=== PATIENT | male | born 1925 | race Caucasian/White ===

== ENCOUNTER 2016-12-03 19:13 | Inpatient (IN) ==
[2016-12-03] MEDS ORDERED: LEVOFLOXACIN INJ 750 MG in PREMIX 1 EACH IV STA (19:38)
[2016-12-03] MEDS ORDERED: ALBUTEROL/IPRATROPIUM 3 ML NEB RESP TX STA (19:38)
[2016-12-03] MEDS ORDERED: methylPREDNISolone SOD SUC 40 MG/1 ML VIAL IM STA (19:38)
[2016-12-03] MEDS ORDERED: LEVOFLOXACIN INJ 150 ML IV ONE (19:44)
[2016-12-03] MEDS ORDERED: TERBUTALINE 1 MG/1 ML VIAL SUBCUT ONE ×2 (19:45→20:10)
--- NOTE | 2016-12-03 19:45 | Emergency Department Note ---
Arrival - Arrival Chief Complaint: Upper Respiratory ED Nursing Triage Note: C/O Fever/nonproductive cough. Onset a couple of days ago. Daughter reported to EMS that pt was seen [facility] and was told that he had an elevated WBC count, but no further investigation was done for this. Pt developed fever and has been confused per family today. Pt is awake, alert and oriented at time of triage, pt does say things in conversation that doesn't make sense. Mode of Arrival: Stretcher Limitations: No Limitations Source: Patient Time Seen by Provider: 12/03/16 19:38 - History of Present Illness HPI Narrative: This 89-year-old white male presents 3 days after onset of cough and intermittent fever, and intermittent wheeze. The patient was seen at the [facility] at that time was told he had an elevated white blood cell count but no further investigation or treatment was done. Since that time he has continued to spike temperatures and have cough with periods of confusion and nausea but no pacheco vomiting. He denies chest pain or purulence. The patient is hard of hearing but beyond this does not seem to have the ability give a full cognizant history. He is oriented to person place and loosely to time at the moment. He does not appear in acute medical distress currently. Onset (ago): day(s) (Patient presents 3 days post onset of symptoms) Allergies/Adverse Reactions: Allergies Allergy/AdvReac Type Severity Reaction Status Date / Time Sulfa (Sulfonamide Allergy Anxiety Verified 11/14/16 14:47 Antibiotics) Home Medications: Home Medications Medication Instructions Recorded Confirmed Type Aspirin [Ecotrin] 81 mg PO BEDTIME 02/12/16 11/17/16 History Lansoprazole [Prevacid] 30 mg PO DAILY 02/12/16 11/17/16 History Review of System - Review of System 12 point system: reviewed and no additional remarkable complaints except as stated - Review of System Constitutional: Present: as per HPI Respiratory: Present: as per HPI Cardiovascular: Present: as per HPI Gastrointestinal: Present: as per HPI Medical,Surgical,& Family Hx - Medical History Cardio: History of: Pacemaker (this admit) Psychological: History of: Depression Neurology: History of: TIA (possible) No history of: Seizures HEENT: History of: Ear Problem (hearing aides), Dental Problems (Dentures) Gastrointestinal: History of: GERD, Gastrointestinal Cancer (ulcers) Other: History of: Skin Problems (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 HEENT: Normocephalic. No trauma. Moist mucous membranes. EOMI. PERRLA. ENT NML NECK: Supple. No adenopathy. CARDIAC: Regular. No murmurs. Heart rate 86 CHEST: Scattered expiratory wheeze. No respiratory distress. O2 sat 94% ABDOMEN: Soft. Nontender. Active bowel sounds. EXTREMITIES: No trauma. Normal ROM. No pedal edema. SKIN: No diaphoresis. No rash. Scattered patches of eczema on the face. NEURO: Alert. Oriented to person and place loosely to time.. Motor, sensory, vibratory intact. No focal deficits. Vital Signs: Vital Signs Temperature 100.5 F H 12/03/16 19:13 Pulse Rate 119 H 12/03/16 20:21 Respiratory Rate 18 12/03/16 20:21 Blood Pressure 141/67 12/03/16 19:13 O2 Sat by Pulse Oximetry 99 12/03/16 20:21 Course Course Narrative: During the course of evaluation the patient demonstrated new onset atrial fibrillation with rapid ventricular response up to 150. He was treated with 25 a Cardizem bring the rate down to 110 but because of borderline hypertension a Cardizem drip was not initiated. Also notable was evidence of early left lower lobe infiltrate. - Reevaluation(s) Reevaluation #1: Discussed with family the need for hospitalization given his 2 major medical problems of pneumonia and new onset atrial fibrillation. - Consultations Consultation #1: Discussed with the hospitalist service who will admit for further evaluation treatment. A Results - Labs CBC & BMP: 12/03/16 19:59 12/03/16 19:59 Labs: I have reviewed the laboratory noted the borderline abnormal white blood cell count. Likewise noted was a normal urines. - Impressions EKG: Atrial fibrillation with rapid ventricular response at 130. Right bundle branch block with evidence of left ventricular hypertrophy. Evidence of bowel anterior WI noted. - Diagnostic Findings Procedure: Chest x-ray: image reviewed by me, report reviewed by me (COPD with evidence of bibasilar atelectasis versus infiltrates), CT: image reviewed by me , report reviewed by me, pending (Head) Disposition Clinical Impression: Left lower lobe pneumonia, New-onset atrial fibrillation Case discussed with: patient's family Disposition: Still a Patient Condition: Guarded Time of Disposition: 21:45
--- NOTE | 2016-12-03 20:12 | CT Report ---
CT head/brain wo con INDICATION: Altered mental status/confusion The total DLP is 970 mGy*cm. COMPARISON: Noncontrast CT head dated May 12, 2016 Technique: Serial axial tomographic images of the brain were obtained without the use of intravenous contrast. Dose reduction: This CT exam was performed using one or more of the following dose reduction techniques: Automated exposure control, automated adjustment of the mA and/or KV according to patient size, or use of iterative reconstruction technique. Findings: Advanced generalized atrophy is noted with mild prominence of the sulci and cortical volume loss, which appears similar to prior. Prominent periventricular white matter hypodensity changes are noted bilaterally which do not demonstrate mass effect and are nonspecific but favored to represent sequela of chronic microvascular ischemia. Chronic punctate lacunar infarct is noted within the left anterior basal ganglia/anterior internal capsule. There is no evidence of vascular territory infarct or acute intracranial hemorrhage. The cage-white matter differentiation is generally maintained. There is no hydrocephalus. The basilar cisterns are patent. The visualized paranasal sinuses, mastoid air cells and middle ear cavities are predominantly clear. The included orbits and their contents appear within normal limits. The visualized osseous structures and overlying soft tissues of the skull and face demonstrate no acute abnormality. IMPRESSION: No acute intracranial hemorrhage or infarction. Similar advanced atrophy and sequela of chronic microvascular ischemia. PROCEDURE INTERPRETED AT [facility] DEPARTMENT OF RADIOLOGY Final Report Signed by: Channing Thacker
[2016-12-03] MEDS ORDERED: methylPREDNISolone SOD SUC 125 MG/2 ML VIAL ONE (20:13)
[2016-12-03] MEDS: TERBUTALINE 1 MG/1 ML VIAL SUBCUT SCH (20:18)
[2016-12-03 20:19] LABS: Basophils # 0.1 10*3/uL (0.0-0.2); Basophils % 0.7 % (0.0-0.8); Eosinophils # 0.3 10*3/uL (0.0-0.87); Eosinophils % 2.6 % (0.00-10.9); Hematocrit 39.9 VOL% (42.0-52.0); Hemoglobin 13.6 GM/DL (14.0-18.0); Immature Granulocytes % 0.5 %; Immature Granulocytes Absolute 0.06 #; Lymphocytes # 3.1 10*3/uL (1.4-4.0); Lymphocytes % 27.7 % (21.2-54.2); Mean Corpuscular HGB Conc 34.1 GM/DL (32-36); Mean Corpuscular Hemoglobin 32 PG (27-34); Mean Corpuscular Volume 93.4 FL (87-102); Mean Platelet Volume 10.1 FL (9.6-12.0); Monocytes # 1.2 10*3/uL (0.11-0.8); Monocytes % 10.6 % (1.7-12.7); Neutrophils # 6.5 10*3/uL (1.4-7.4); Neutrophils % 57.9 % (38.7-73.9); Platelet Count 200 T/CUMM (130-400); Red Blood Count 4.27 MC/CUMM (3.8-5.5); Red Cell Distribution Width 12.9 % (9.3-17.3); White Blood Count 11.2 T/CUMM (4-12)
--- NOTE | 2016-12-03 20:20 | XRay Report ---
Exam: XR chest 1V portable Indication: Shortness of breath Comparison study: 11/17/2016 Findings: Cardiac silhouette is enlarged, similar to prior. Diffuse interstitial opacities suggestive of underlying chronic scarring appears similar prior. Low lung volumes are noted with basilar atelectasis. There is also minimal patchy left more so than right lung basilar airspace opacities which may represent a degree of atelectasis or developing infiltrates. There is no pneumothorax. Left chest pacemaker device and wire leads appear in similar position. There is no acute osseous abnormality. Impression: Low lung volumes and chronic interstitial changes and patchy basilar opacities may represent atelectasis although developing infiltrate cannot be entirely excluded. PROCEDURE INTERPRETED AT [facility] DEPARTMENT OF RADIOLOGY Final Report Signed by: Channing Thacker
[2016-12-03 20:23] LABS: Apearance,Urine CLEAR (Clear); Bilirubin,Urine Negative (Negative); Blood, Urine Negative (Negative); Glucose,Urine (UA) Negative (Negative); Ketones,Urine Negative (Negative); Mucus,Urine Occasional /LPF (Occasional); Nitrite,Urine Negative (Negative); Protein,Urine Negative; RBC,Urine <1 /HPF (0-4); Urine Color Yellow (Yellow); Urine Specific Gravity 1.012 (1.001-1.035); Urine Urobilinogen < 2.0 EU/DL (0.2-1.0); WBC,Urine <1 /HPF (0-6)
[2016-12-03 20:32] LABS: Barbiturates Screen,Urine Negative (Negative); Benzodiazepines Screen,Urine Negative (Negative); Cannabinoid Screen,Urine Negative (Negative); Opiate Screen,Urine Negative (Negative); Phencyclidine Screen,Urine Negative (Negative)
[2016-12-03 20:42] LABS: Alanine Aminotransferase 20 U/L (16-61); Alkaline Phosphatase 122 U/L (45-117); Aspartate Amino Transferase 21 U/L (0-37); Blood Urea Nitrogen 17 MG/DL (7-18); Calcium 8.4 MG/DL (8.5-10.1); Glucose 106 MG/DL (74-106); Osmolality,Calculated 271.1 MOS/KG (273-304); Potassium 4.4 MMOL/L (3.5-5.1); Sodium 135 MMOL/L (136-145); Troponin I Only < 0.015 NG/ML (0.00-0.045)
[2016-12-03] MEDS ORDERED: DILTIAZEM 50 MG/10 ML VIAL IV STA (20:44)
[2016-12-03] MEDS ORDERED: DILTIAZEM 50 MG/10 ML VIAL IV ONE (20:48)
--- NOTE | 2016-12-03 22:25 | Hospitalist History & Physical ---
Assessment and Plan (1) Atrial fibrillation with RVR Status: Acute Assessment and plan: This is reported by the emergency room physician. The patient reportedly was given 25 mg of Cardizem IV with return of rate to below 120. Blood pressure is normal. I am concerned that there may be some pacemaker failure here if you do not capture to control the rate. Therefore need to get a hydrology technician involved and may be quite in the past pacemaker. Cannot tell me who his cardiology disease there is no family member at the bedside. Patient being admitted to the hospital to the service of Dr. Gavin Current Visit: Yes (2) Pacemaker failure Status: Acute Assessment and plan: See above. I do not see disruption in the wiring on the chest x-ray Current Visit: Yes (3) Left lower lobe pneumonia Status: Acute Assessment and plan: Patient reportedly did receive levofloxacin and ceftriaxone in the emergency room. We will continue with the same on a daily basis starting tomorrow. I will obtain a urine for strep pneumonia antigen. Check for mycoplasma IgM and IgG this is at worst community-acquired pneumonia. As regard to altered mental status this does not seem to be the case at this point. Patient seems to be with baseline dementia. He does not look toxic and none the less he needs 2 sets of blood culture to evaluate for invasive infection. Repeat a chest x-ray in 5 days for continues to be of normal at 6 weeks. Current Visit: Yes History of Present Illness Chief complaint: Altered mental status preceded by a cough and reported fever History of present illness: Mr. Kemp is a 89 year old male (a very poor historian) presented to the emergency room with a history of "fevers cough nonproductive and a history of having been [facility]; and having been told to have a leukocytosis. Patient reportedly had been having problems breathing at home. When I asked him to question as to whether he had fever as he cannot recall but he states that he is "cold natured." All the time I was with him he never coughed once. He did have a chest x-ray in the emergency room that shows opacity in the left lower lobe possibly also involving the lingula because alludes to the cardiac silhouette. He has a history of this medical placement noted on an EKG on previous visits to this hospital. States that his heart was fast this with a put the pacemaker in. While in the emergency room, according to the emergency room physician, he developed atrial fibrillation with rapid ventricular responses. He was given 25 mg IV Cardizem IV push and that was able to bring the heart rate in the 1 teens. Some reason an EKG was not done and there is none on the chart. I plan to run an EKG now. If this patient developed RVR atrial fibrillation then they must have been pacemaker failure. I do not this presence of a dual-chamber pacemaker by chest x-ray. Home Medications Medication Instructions Recorded Confirmed Type Aspirin [Ecotrin] 81 mg PO BEDTIME 02/12/16 11/17/16 History Lansoprazole [Prevacid] 30 mg PO DAILY 02/12/16 11/17/16 History Allergies Allergy/AdvReac Type Severity Reaction Status Date / Time Sulfa (Sulfonamide Allergy Anxiety Verified 11/14/16 14:47 Antibiotics) Medical,Surgical,& Family Hx - Medical History Cardio: History of: Pacemaker (this admit) Psychological: History of: Depression Neurology: History of: TIA (possible) No history of: Seizures HEENT: History of: Ear Problem (hearing aides), Dental Problems (Dentures) Gastrointestinal: History of: GERD, Gastrointestinal Cancer (ulcers) Other: History of: Skin Problems (Status post radiation to right nasal lesion) - Surgical History HEENT Surgeries: Surgical HX of: Eye Surgery (bilateral cataract) Abdominal Surgeries: Surgical HX of: Abdominal Surgery, Cholecystectomy Orthopedic Surgeries: Surgical HX of;: Orthopedic Surgery - Family History Family History: Reports;: Family Stroke - Social History Smoking Status: Never smoker Frequency of Alcohol Use: None Type of Drug Use: None - Constitutional Constitutional: Present: other (Denies fevers but acknowledges been cold) - EENT Eyes: Present: other (No symptoms and signs) Nose, mouth and throat: Present: other (No symptoms and signs) - Cardiovascular Cardiovascular: Present: other (Irregular heartbeat) - Respiratory Respiratory: Present: other (Symptoms and signs) - Neurological Neurological: Present: other (Generalized weakness) - Psychiatric Psychiatric: Present: other (Possible dementia) Exam - Constitutional Vitals: Period Temp Pulse Resp BP Sys/Wray Pulse Ox Last 24 Hr 100.5 F-100.5 F 79-119 15-19 141-141/67-67 94-99 General appearance: normal weight - Head Head exam: Present: normocephalic, atraumatic - Eye Eye exam: Present: EOMI Pupils: Present: GHANSHYAM - ENT ENT exam: Present: normal oropharynx - Cardiovascular Cardiovascular exam: Present: irregular rhythm, other (Rate below 120 presence of a pacemaker very infrequent pacemaker spikes) - GI/Abdominal GI/Abdominal exam: Present: normal bowel sounds, soft - Extremities Exam Extremities exam: Present: full ROM, other (Generalized weakness) - Neurological Exam Neurological exam: Present: alert, CN II-XII intact, other (Very hard of hearing marginal cognitive output) - Psychiatric Psychiatric exam: Present: other (Possible dementia) - Skin Skin exam: Present: normal color, warm, dry Results - Labs CBC & BMP: 12/03/16 19:59 12/03/16 19:59 Lab Results: I have reviewed the past 24 hour labs (I noticed a modest leukocytosis modest anemia) - Diagnostic Findings Procedure: Chest x-ray: image reviewed by me (Left basilar and possible lingular opacity)
[2016-12-03] MEDS ORDERED: cefTRIAXone 1,000 MG VIAL IM STA (22:52)
[2016-12-03] MEDS ORDERED: cefTRIAXone 1,000 MG VIAL ONE (23:33)
[2016-12-04] MEDS: TERBUTALINE 1 MG/1 ML VIAL SUBCUT SCH ×2 (00:21→01:37)
[2016-12-04] MEDS: PANTOPRAZOLE 40 MG TABLET PO SCH (09:05)
--- NOTE | 2016-12-04 09:49 | EKG Report ---
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
--- NOTE | 2016-12-04 14:46 | Hospitalist Progress Note ---
Assessment and Plan (1) Atrial fibrillation with RVR Status: Acute Assessment and plan: Patient has regular rhythm now and heart rate is controlled history of pacemaker placement will ask cardiology to see him tomorrow Current Visit: Yes (2) Leukocytosis Status: Acute Assessment and plan: Patient has mild leukocytosis he has been started on antibiotics for suspected pneumonia but there is no symptoms otherwise. Will follow her white count tomorrow Current Visit: No Hospitalist: Subjective Interval history: Mr. Kemp is a 89 year old male who was brought for the history of cough and fever was nonproductive. Recently was admitted to the hospital for altered mental status which family was concerned about. He was seen by the geriatric there and advised to follow-up with the local escort blind. He was found to have a leukocytosis there with no obvious source except some respiratory symptom and discharged on doxycycline. Patient family is not here so I am not sure he was able to take those medication. He was brought here last night with the cough fever and dyspnea. There is no objective fever here and patient not coughing. He has history of pacemaker placement for bradycardia last year. He was reported to have atrial fib with rapid ventricular rate in the ER and required Cardizem. X-ray reported to have bilateral interstitial changes and bibasilar opacities/atelectasis. Patient was noted to have mild leukocytosis started on IV antibiotics. Patient is alone in room and unable to verbalize any symptoms looked very comfortable without any distress Exam - Constitutional Vitals: Period Temp Pulse Resp BP Sys/Wray Pulse Ox Last 24 Hr 98.0 F-98.6 F 71-90 18-20 107-118/55-58 97-97 General appearance: no acute distress - Respiratory Respiratory exam: Present: clear to auscultation bilaterally. Absent: rales, rhonchi - Cardiovascular Cardiovascular exam: Present: regular rate and rhythm. Absent: tachycardia - GI/Abdominal GI/Abdominal exam: Present: normal bowel sounds, soft. Absent: tenderness - Extremities Exam Extremities exam: Present: edema - Neurological Exam Neurological exam: Present: alert Results - Labs CBC & BMP: 12/03/16 19:59 12/03/16 19:59 Lab Results: I have reviewed the past 24 hour labs
--- NOTE | 2016-12-04 15:17 | Case Mgmt Physician Query Form ---
TB Signs and Symptoms Screening ([place]) INSTRUCTIONS: To be completed annually on residents/staff with a significant Tuberculin Skin Test (TST) upon admission/hire or a prior significant TST. To be completed on all staff at hire. Please respond to each listed symptom with an (X) in either the "YES" or "NO" box. Do you currently have any of the following symptoms: YES NO (x ) ( ) A cough If yes, is it: (x ) Productive ( ) Non- productive ( ) ( x) Hemoptysis (spitting up blood) ( ) ( x) Chest pains ( ) ( x) Weight Loss ( ) ( x) Fever ( ) (x ) Night Sweats ( ) (x ) Weakness ( ) (x ) Loss of Appetite ( ) (x ) Difficulty Breathing If you answered YES" to any of the above questions, how long have symptoms been present? Comments: if you have any questions,please contact me. Thank you , Concepcion GLASGOW P:[phone] F: [phone] E: [email or web address]
[2016-12-04] MEDS ORDERED: TUBERCULIN SKIN TEST 0.1 ML SYRINGE INTRADERM ONE (16:00)
[2016-12-04] MEDS: TEMAZEPAM 15 MG CAPSULE PO PRN (20:15)
[2016-12-04] MEDS: ASPIRIN EC 81 MG TABLET PO SCH (20:15)
[2016-12-04] MEDS: LEVOFLOXACIN INJ 750 MG in PREMIX 1 EACH IV SCH (20:17)
--- NOTE | 2016-12-04 21:47 | Cardiology Consult Note ---
Assessment and Plan - Time spent with patient Time spent with patient: Greater than 30 minutes (1) Atrial fibrillation with RVR Status: Acute Assessment and plan: This is most likely due to his age and structural heart disease and sick sinus syndrome, more so than pacemaker malfunction. He probably did not get antitachycardia pacemaking ability with his pacemaker because of the time he had not had atrial fib. Plan/recommendation: rate control medicine-Toprol 12.5 mg p.o. twice daily Will not add an antiarrhythmic drug unless she fails the rate control medicine Check magnesium and replete per guidelines Check TSH The question comes up regarding anticoagulation. At this point, I would not do it unless he has another episode or TIA. I am just considering risk and benefits based on his being [address] Gustafson may have better insight as to whether to treat or not. Agree with your antibiotics to treat his pneumonia I will follow along with. Thank you for allowing me to participate in this patient's care Current Visit: Yes (2) Decreased hearing of both ears Status: Acute Current Visit: Yes (3) Skin cancer Status: Acute Current Visit: Yes (4) Left lower lobe pneumonia Status: Acute Current Visit: Yes (5) S/P cardiac pacemaker procedure Status: Acute Current Visit: No (6) Sick sinus syndrome Status: Acute Current Visit: No History of Present Illness - Data of Consult Patient: known to practice within the last 3 years Consult date: 12/04/16 Requesting Physician: David Mathew - Consult Narrative Reason for consult: Evaluate A. fib RVR,? Pacemaker malfunction History of present illness: Mr. 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 Ulises Gustafson 89-year-old man. Has known sick sinus syndrome. And about 6 had a pacemaker placed. The lead had to be repositioning. Later follow-up presumably showed normally functioning pacemaker. He came to the emergency room. He was noted to be in A. fib RVR. He is begun on some Cardizem. He converted to sinus rhythm. He was admitted. I was asked see him. No chest pain. No orthopnea, PND, edema, aphthous, syncope, cough wheezing or phlegm. Has had skin cancers LVEF is around 45% at the last time is checked within the last 8 months Decreased hearing CC: Darwin Gavin MD - Home Medications and Allergies Home Medications: Home Medications Medication Instructions Recorded Confirmed Type Aspirin [Ecotrin] 81 mg PO BEDTIME 02/12/16 12/04/16 History Lansoprazole [Prevacid] 30 mg PO DAILY 02/12/16 12/04/16 History Temazepam [Restoril] 1 tablet PO BEDTIME PRN 12/04/16 12/04/16 History Allergies/Adverse Reactions: Allergies Allergy/AdvReac Type Severity Reaction Status Date / Time Sulfa (Sulfonamide Allergy Anxiety Verified 11/14/16 14:47 Antibiotics) 12 point system: reviewed and no additional remarkable complaints except as stated (A 12 point review of systems is negative except for as mentioned in HPI. ) Medical,Surgical,& Family Hx - Medical History Cardio: History of: Pacemaker (this admit) Psychological: History of: Depression Neurology: History of: TIA (possible) No history of: Seizures HEENT: History of: Ear Problem (hearing aides), Dental Problems (Dentures) Gastrointestinal: History of: GERD Comment Only: Gastrointestinal Cancer (ulcers) Musculoskeletal: History of: Musculoskeletal Problems (hip) Other: History of: Skin Problems (Status post radiation to right nasal lesion) - Surgical History HEENT Surgeries: Surgical HX of: Eye Surgery (bilateral cataract) Abdominal Surgeries: Surgical HX of: Abdominal Surgery, Cholecystectomy Orthopedic Surgeries: Surgical HX of;: Orthopedic Surgery - Family History Family History: Reports;: Family Stroke - Social History Smoking Status: Never smoker Frequency of Alcohol Use: None Type of Drug Use: None Functional capacity: independent ambulation Physical Examination Vital Signs Temp Pulse Resp BP Pulse Ox 100.5 F H 86 18 141/67 94 L 12/03/16 19:13 12/03/16 19:13 12/03/16 19:13 12/03/16 19:13 12/03/16 19:13 Other: HEENT: Pupils equal, reactive to light and accommodation Neck: NoJVD or bruit Lungs clear to auscultation Heart: Regular rhythm rate with normal S1 and S2. Apical S4, 2/6 systolic ejection murmur along the right upper sternal border. Abdomen: No hepatosplenomegaly Spine/extremities: No clubbing, cyanosis, or edema Neuro: Nonfocal Psych: No depression or anxiety Result/EKG - Labs CBC & BMP: 12/03/16 19:59 12/03/16 19:59 - Diagnostic Findings Procedure: Chest x-ray: report reviewed by me - EKG EKG results: interpreted by me Specialty Discharge - Follow Up or Referrals Follow up with: Mango Gustafson MD [Physician] -
[2016-12-04] MEDS: cefTRIAXone 1,000 MG in SODIUM CHLORIDE 0.9% 100 ML IV SCH (22:08)
[2016-12-04] MEDS: METOPROLOL TARTRATE 25 MG TABLET PO SCH (22:17)
[2016-12-05 05:43] LABS: Basophils % 0.1 % (0.0-0.8); Eosinophils # 0.1 10*3/uL (0.0-0.87); Eosinophils % 0.3 % (0.00-10.9); Hematocrit 37.7 VOL% (42.0-52.0); Hemoglobin 12.6 GM/DL (14.0-18.0); Immature Granulocytes % 0.5 %; Immature Granulocytes Absolute 0.09 #; Lymphocytes # 3.2 10*3/uL (1.4-4.0); Lymphocytes % 17.9 % (21.2-54.2); Mean Corpuscular HGB Conc 33.4 GM/DL (32-36); Mean Corpuscular Hemoglobin 32 PG (27-34); Mean Corpuscular Volume 94.7 FL (87-102); Mean Platelet Volume 10.2 FL (9.6-12.0); Monocytes # 1.6 10*3/uL (0.11-0.8); Monocytes % 8.8 % (1.7-12.7); Neutrophils % 72.4 % (38.7-73.9); Platelet Count 191 T/CUMM (130-400); Red Blood Count 3.98 MC/CUMM (3.8-5.5); Red Cell Distribution Width 12.9 % (9.3-17.3); White Blood Count 17.9 T/CUMM (4-12)
[2016-12-05 06:21] LABS: Free T4 (Free Thyroxine) 1.52 NG/DL (0.76-1.46); Thyroid Stimulating Hormone 0.702 uIU/ml (0.358-3.74)
--- NOTE | 2016-12-05 08:24 | EKG Report ---
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
[2016-12-05] MEDS: METOPROLOL TARTRATE 25 MG TABLET PO SCH ×2 (09:41→22:18)
[2016-12-05] MEDS: PANTOPRAZOLE 40 MG TABLET PO SCH (09:41)
--- NOTE | 2016-12-05 10:45 | Cardiology Progress Note ---
Assessment and Plan (1) Atrial fibrillation with RVR Status: Acute Assessment and plan: This is most likely due to his age and structural heart disease and sick sinus syndrome, more so than pacemaker malfunction. He probably did not get antitachycardia pacemaking ability with his pacemaker because of the time he had not had atrial fib. Plan/recommendation: rate control medicine-Toprol 12.5 mg p.o. twice daily Will not add an antiarrhythmic drug unless she fails the rate control medicine Check magnesium and replete per guidelines Check TSH The question comes up regarding anticoagulation. At this point, I would not do it unless he has another episode or TIA. I am just considering risk and benefits based on his being [address] Gustafson may have better insight as to whether to treat or not. Agree with your antibiotics to treat his pneumonia I will follow along with. Thank you for allowing me to participate in this patient's care 12/05/16: Assessment/plan/recommendation: Tolerating the metoprolol well. 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 [facility] with probably a very good option for him, and then may be able to help with what I believe is probably some dementia being tipped over into delirium. I presume today's elevation white count relates to his pneumonia,? I conferred care with Dr. Gavin When he is discharged he will follow-up with Dr. Mango Gustafson Current Visit: Yes (2) Decreased hearing of both ears Status: Acute Current Visit: Yes (3) Skin cancer Status: Acute Current Visit: Yes (4) Left lower lobe pneumonia Status: Acute Current Visit: Yes (5) S/P cardiac pacemaker procedure Status: Acute Current Visit: No (6) Sick sinus syndrome Status: Acute Current Visit: No (7) Confusion Status: Acute Current Visit: Yes (8) SunDown syndrome Status: Acute Current Visit: Yes (9) Delirium Status: Acute Current Visit: Yes Cardiology - PN: Subj Interval history: No chest pain or shortness of breath. He has not felt any tachycardia palpitations or dizziness. The nurses relates that he is confused in the evenings, consistent with sundowner's syndrome Exam (Progress Note) - Constitutional Vitals: Period Temp Pulse Resp BP Sys/Wray Pulse Ox Last 24 Hr 98.0 F-98.4 F 72-96 18-24 113-133/58-98 93-97 Exam: HEENT: Pupils equal, reactive to light and accommodation Neck: NoJVD or bruit Lungs clear to auscultation Heart: Regular rhythm rate with normal S1 and S2. Apical S4 Abdomen: No hepatosplenomegaly Spine/extremities: No clubbing, cyanosis, or edema Neuro: confused Psych: No depression or anxiety Result/EKG - Labs CBC & BMP: 12/05/16 05:29 12/03/16 19:59 Lab Results: I have reviewed the past 24 hour labs Labs: Laboratory Results - last 24 hr 12/05/16 12/05/16 05:29 05:29 WBC 17.9 H D RBC 3.98 Hgb 12.6 L Hct 37.7 L MCV 94.7 MCH 32 MCHC 33.4 RDW 12.9 Plt Count 191 MPV 10.2 Neut % (Auto) 72.4 Lymph % (Auto) 17.9 L [place] % (Auto) 8.8 Eos % (Auto) 0.3 Baso % (Auto) 0.1 Neut # (Auto) 13.0 H Lymph # (Auto) 3.2 [place] # (Auto) 1.6 H Eos # (Auto) 0.1 Baso # (Auto) 0.0 Immature Gran % 0.5 Nucleated RBC % 0.0 Immature Gran # 0.09 Nucleated RBCs # 0.00 Magnesium 2.0 Free T4 1.52 H TSH 3rd Generation 0.702 - EKG EKG results: interpreted by me Specialty Discharge - Follow Up or Referrals Follow up with: Mango Gustafson MD [Physician] -
--- NOTE | 2016-12-05 11:51 | Hospitalist Progress Note ---
Assessment and Plan (1) Altered mental status Status: Acute Assessment and plan: Patient seemed to be little altered today wandering around in the ross. I am not sure the etiology was given temazepam yesterday I will stop. He may have some degree of dementia underlying infection/pneumonia may be a possibility due to symptom presentation he also had leukocytosis. WBC count is worse today noted he is on Rocephin and levofloxacin. Urinalysis negative. Blood cultures so far no growth. No diarrhea reported. I am not sure if it is any occult infection. I will obtain a CT scan chest abdomen and pelvis. I called the daughter but unable to reach patient may be able to get benefit from [facility] Current Visit: Yes (2) Atrial fibrillation with RVR Status: Acute Assessment and plan: Patient has regular rhythm now and heart rate is controlled history of pacemaker placement. Seen by the cardiology and started on low-dose of beta- blossom anticoagulation was not considered to age and potential risk benefit ratio patient has been on aspirin Current Visit: Yes (3) Leukocytosis Status: Acute Assessment and plan: As mentioned WBC count is elevated with the potential diagnosis of pneumonia antibiotic was changed as mentioned above Current Visit: No Hospitalist: Subjective Interval history: Mr. Kemp is a 89 year old male who was brought for the history of cough and fever was nonproductive. Recently was admitted to the hospital for altered mental status which family was concerned about. He was seen by the geriatric there and advised to follow-up with the local screening specialist. He was found to have a leukocytosis there with no obvious source except some respiratory symptom and discharged on doxycycline. Patient family is not here so I am not sure he was able to take those medication. He was brought here 12/03/16 with the cough fever and dyspnea. There is no objective fever here and patient was not coughing when. He has history of pacemaker placement for bradycardia last year. He was reported to have atrial fib with rapid ventricular rate in the ER and required Cardizem. X-ray reported to have bilateral interstitial changes and bibasilar opacities/atelectasis. Patient was noted to have mild leukocytosis started on IV antibiotics. He remained afebrile but confused and wandering around family not present in the room. Not actively coughing. Patient was seen by the cardiology for A. fib and started on beta-blossom anticoagulation was not considered Exam - Constitutional Vitals: Period Temp Pulse Resp BP Sys/Wray Pulse Ox Last 24 Hr 98.0 F-98.7 F 72-96 18-24 113-133/58-98 93-97 General appearance: no acute distress - Respiratory Respiratory exam: Present: clear to auscultation bilaterally. Absent: rales, rhonchi - Cardiovascular Cardiovascular exam: Present: regular rate and rhythm. Absent: tachycardia - GI/Abdominal GI/Abdominal exam: Present: normal bowel sounds, soft. Absent: distended, tenderness - Extremities Exam Extremities exam: Present: normal inspection. Absent: edema - Neurological Exam Neurological exam: Present: alert. Absent: oriented X3 Results - Labs CBC & BMP: 12/05/16 05:29 12/03/16 19:59 Specialty Discharge - Follow Up or Referrals Follow up with: Mango Gustafson MD [Physician] -
--- NOTE | 2016-12-05 14:41 | CT Report ---
CT chest abdomen pelvis wo/w Technique: Axial imaging was performed from the lung apices through the lung bases with continuation through the abdomen and pelvis prior to and following administration of 100 cc of Omnipaque 350.. No immediate complication from administration of contrast. Coronal and sagittal reformatted images were additionally created and submitted for review. Dose reduction: This CT exam was performed using one or more of the following dose reduction techniques: Automated exposure control, automated adjustment of the mA and/or KV according to patient size, or use of iterative reconstruction technique. Total DLP: 856.1 mGy*cm Clinical history: Worsening leukocytosis, possible pneumonia Comparison: None available Findings: CHEST: Mediastinum/vessels: Heart and great vessels appear unremarkable. There is no evidence of pericardial effusion. The aorta and pulmonary vessels appear widely patent. Thyroid/lymph nodes: There is no adenopathy in the chest. Mildly prominent but not technically enlarged right hilar and mediastinal lymph nodes are likely reactive. Thyroid gland appears within normal limits. Lungs: Patchy basilar atelectasis is noted bilaterally. There is no definite focal consolidation. There is no pleural effusion. Central airways are patent. There is no pneumothorax. No definite suspicious pulmonary nodules or masses are identified. There is widespread interlobular septal thickening suggesting a degree of interstitial edema. ABDOMEN: Liver/Gallbladder: No abnormal enhancing hepatic lesions. Portal vein is patent. There is no biliary ductal dilatation. There has been a prior cholecystectomy. Spleen: No acute findings. Pancreas: No acute findings. Adrenals: Within normal limits in appearance. Kidneys: Both kidneys enhance symmetrically. There is no evidence of hydronephrosis or hydroureter. There are no renal calculi visualized on the unenhanced images. There is symmetric excretion of contrast from both kidneys on delayed images. Bowel/mesentery: Small bowel is nondilated. There is no free fluid/air within the abdomen. There are multiple diverticula noted within the descending and sigmoid colon. No definite focal inflammatory changes are identified to suggest acute diverticulitis. Retroperitoneum: No evidence of aortic aneurysm or significant retroperitoneal adenopathy. PELVIS: Bladder: Bladder appears unremarkable for degree of distention. A probable small bladder diverticulum is noted Pelvic organs: Prostate appears unremarkable. Free fluid/lymph nodes: No free fluid within the dependent pelvis. No lymphadenopathy. Vessels: Major pelvic vasculature is essentially unremarkable in appearance and widely patent. BONES: No acute or suspicious osseous abnormalities are identified. Multilevel degenerative changes are noted within the thoracic and lumbar spine. Near-complete disc space loss is noted at L5-S1. T12 and L1 demonstrate PMMA cement from prior augmentation. Impression: 1. No acute abnormality in the chest, abdomen or pelvis. 2. No focal abnormality within the chest, abdomen or pelvis to explain patient's symptoms. 3. Colonic diverticulosis with no CT evidence of acute diverticulitis. 4. Minimal diffuse interstitial thickening is suggestive of interstitial edema. PROCEDURE INTERPRETED AT [facility] DEPARTMENT OF RADIOLOGY Final Report Signed by: Channing Thacker
[2016-12-05] MEDS: SODIUM CHLORIDE 0.9% 1,000 ML IV SCH (18:06)
[2016-12-05] MEDS: ASPIRIN EC 81 MG TABLET PO SCH (22:17)
[2016-12-05] MEDS: LEVOFLOXACIN INJ 750 MG in PREMIX 1 EACH IV SCH (22:18)
[2016-12-05] MEDS: TEMAZEPAM 15 MG CAPSULE PO PRN (22:18)
[2016-12-05] MEDS: cefTRIAXone 1,000 MG in SODIUM CHLORIDE 0.9% 100 ML IV SCH (23:45)
[2016-12-06] MEDS: SODIUM CHLORIDE 0.9% 1,000 ML IV SCH ×3 (02:08→17:05)
[2016-12-06 07:05] LABS: Basophils # 0.1 10*3/uL (0.0-0.2); Basophils % 0.4 % (0.0-0.8); Eosinophils # 0.3 10*3/uL (0.0-0.87); Eosinophils % 2.2 % (0.00-10.9); Hematocrit 35.3 VOL% (42.0-52.0); Immature Granulocytes % 0.5 %; Immature Granulocytes Absolute 0.06 #; Lymphocytes # 3.3 10*3/uL (1.4-4.0); Lymphocytes % 28.5 % (21.2-54.2); Mean Corpuscular Hemoglobin 32 PG (27-34); Mean Corpuscular Volume 94.6 FL (87-102); Mean Platelet Volume 10.8 FL (9.6-12.0); Monocytes # 1.1 10*3/uL (0.11-0.8); Monocytes % 9.1 % (1.7-12.7); Neutrophils # 6.9 10*3/uL (1.4-7.4); Neutrophils % 59.3 % (38.7-73.9); Platelet Count 158 T/CUMM (130-400); Red Blood Count 3.73 MC/CUMM (3.8-5.5); Red Cell Distribution Width 13.2 % (9.3-17.3); White Blood Count 11.6 T/CUMM (4-12)
[2016-12-06 07:38] LABS: Calcium 7.6 MG/DL (8.5-10.1); Osmolality,Calculated 271.8 MOS/KG (273-304)
--- NOTE | 2016-12-06 08:31 | EKG Report ---
Stationary ECG Study [facility] Test Date: 12/06/2016 8:30:57 AM Pat Name: ALEN JAVIER Department: Room: 526 Gender: M Vp Account Director: HILARY : 1925 Requested by: Chace Keith Order Number: [id number] Reading MD: GUILLERMO BAEZ Intervals [place] Rate: 103 P: 239 MN: 155 QRS: -47 QRSD: 134 T: 110 QT: 373 QTc: 433 Interpretive Statements SINUS TACHYCARDIA INTRAVENTRICULAR CONDUCTION DELAY LEFT VENTRICULAR HYPERTROPHY AND ST-T CHANGE LATERAL MYOCARDIAL INFARCTION, PROBABLY RECENT Electronically Signed On 12-06-16 09:02:41 CDT by GUILLERMO BAEZ [email or web address]
--- NOTE | 2016-12-06 09:45 | Cardiology Progress Note ---
Anthony Walker April, RN, am scribing for, and in the presence of, Clarisse Slade, 09 :43. Assessment and Plan - Time spent with patient Time spent with patient: Greater than 30 minutes (1) Atrial fibrillation with RVR Status: Acute Assessment and plan: Continue AV jamshid blocking agents at this time. He has an elevated CHADS score and will likely benefit from anticoagulation if there is no contraindication. This is paroxysmal in nature. Difficult for me to get a very good history from the patient. 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 Kemp was admitted with altered mental status preceded by cough and reported fever. EKG showed atrial fibrillation with a heart rate of 130. He was given 25 mg of Cardizem IV and according to the record this got his rate below 120. Cardiology was asked to see because of A. fib with RVR and possible pacemaker malfunction. Dr. Keith saw him in consultation and started him on Lopressor 12.5 p.o. twice daily. Anticoagulation was not started at this time. Dr. Keith felt the atrial fibrillation was most likely related to his age, structural heart disease, and sick sinus syndrome more so than pacemaker malfunction. EKG done yesterday showed sinus rhythm with heart rate of 75. Currently he is resting in bed in no acute distress. He is very hard of hearing and somewhat difficult to communicate with. He tells me he is concerned because he acted ugly to his family yesterday, but he tells me this is because of his pneumonia. He denies any chest pain, shortness of breath, or palpitations. He is not using oxygen, appears to be tolerating this well. Telemetry monitoring currently shows atrial fibrillation with heart rates in the 90s. I saw and examined the patient with Anthony. Mr. Kemp is an 89-year-old patient Dr. Ulises Gustafson with paroxysmal atrial fibrillation now. I am not 100% sure but this appears to be new diagnosis for the patient. He has been having intermittent bouts of atrial fibrillation. He also has some delirium. He has a dual-chamber pacemaker that apparently is functioning appropriately according to Dr. Keith's note. Exam (Progress Note) - Constitutional Vitals: Period Temp Pulse Resp BP Sys/Wray Pulse Ox Last 24 Hr 98.3 F-99.4 F 72-101 18-21 110-139/61-80 94-98 General appearance: normal weight, no acute distress - Head Head exam: Absent: abrasion, hematoma - Eye Eye exam: Absent: periorbital swelling, laceration to eyelids - Respiratory Respiratory exam: Present: clear to auscultation bilaterally, decreased breath sounds. Absent: accessory muscle use, chest wall tenderness - Cardiovascular Cardiovascular exam: Present: irregular rhythm. Absent: rubs - GI/Abdominal GI/Abdominal exam: Present: normal bowel sounds, soft. Absent: distended, tenderness - Extremities Exam Extremities exam: Absent: calf tenderness, edema - Neurological Exam Neurological exam: Present: alert - Psychiatric Psychiatric exam: Present: normal affect, normal mood - Skin Skin exam: Present: warm, dry Result/EKG - Labs CBC & BMP: 12/06/16 05:30 12/06/16 05:30 Lab Results: I have reviewed the past 24 hour labs Labs: Laboratory Results - last 24 hr 12/06/16 12/06/16 05:30 05:30 WBC 11.6 D RBC 3.73 L Hgb 12.0 L Hct 35.3 L MCV 94.6 MCH 32 MCHC 34.0 RDW 13.2 Plt Count 158 MPV 10.8 Neut % (Auto) 59.3 Lymph % (Auto) 28.5 [place] % (Auto) 9.1 Eos % (Auto) 2.2 Baso % (Auto) 0.4 Neut # (Auto) 6.9 Lymph # (Auto) 3.3 [place] # (Auto) 1.1 H Eos # (Auto) 0.3 Baso # (Auto) 0.1 Immature Gran % 0.5 Nucleated RBC % 0.0 Immature Gran # 0.06 Nucleated RBCs # 0.00 Sodium 137 Potassium 4.0 Chloride 103 Carbon Dioxide 24 Anion Gap 14.0 BUN 15 Creatinine 1.00 GFR Calculation 63 BUN/Creatinine Ratio 15.00 Glucose 67 L Calculated Osmolality 271.8 L Calcium 7.6 L - EKG EKG results: interpreted by me (Sinus tachycardia left axis deviation LVH and right bundle branch block) Specialty Discharge - Follow Up or Referrals Follow up with: Mango Gustafson MD [Physician] - Yany Walker Shea, DO, personally performed the services described in this documentation, ascribed by Dolores Cruz RN in my presence, and it is both accurate and complete .
[2016-12-06] MEDS: METOPROLOL TARTRATE 25 MG TABLET PO SCH ×2 (10:02→20:21)
[2016-12-06] MEDS: PANTOPRAZOLE 40 MG TABLET PO SCH (10:03)
--- NOTE | 2016-12-06 14:24 | Hospitalist Progress Note ---
Assessment and Plan (1) Leukocytosis Status: Acute Assessment and plan: Improved today Treating for pneumonia Current Visit: No (2) Atrial fibrillation with RVR Status: Acute Assessment and plan: Now intermittent. Cardiology managing. Continue lopressor. Current Visit: Yes (3) Left lower lobe pneumonia Status: Acute Assessment and plan: Continue rocephin and levaquin Current Visit: Yes (4) Altered mental status Status: Acute Assessment and plan: Possibly delirium secondary to infection. Also with sundowning. Current Visit: Yes Hospitalist: Subjective Interval history: Daughter reports that patient has been sundowning for approximately 3 weeks. White count has come down on levaquin and rocephin. CT without obvious signs of infection. Cardiology assisting with new onset atrial fibrillation. Family is interested in swing bed placement. Possible discharge soon. Exam - Constitutional Vitals: Period Temp Pulse Resp BP Sys/Wray Pulse Ox Last 24 Hr 98.3 F-99.4 F 72-101 18-21 97-139/60-80 94-98 General appearance: normal weight - Head Head exam: Present: normocephalic, atraumatic - Eye Eye exam: Present: EOMI Pupils: Present: GHANSHYAM - ENT ENT exam: Present: normal exam - Neck Neck exam: Present: normal inspection - Respiratory Respiratory exam: Present: clear to auscultation bilaterally. Absent: rhonchi, wheezes - Cardiovascular Cardiovascular exam: Present: regular rate and rhythm - GI/Abdominal GI/Abdominal exam: Present: normal bowel sounds, soft. Absent: tenderness, rebound - Extremities Exam Extremities exam: Present: normal inspection - Back Exam Back exam: Present: normal inspection - Neurological Exam Neurological exam: Present: alert - Psychiatric Psychiatric exam: Present: normal affect, normal mood - Skin Skin exam: Present: warm, intact Results - Labs CBC & BMP: 12/06/16 05:30 12/06/16 05:30 Specialty Discharge - Follow Up or Referrals Follow up with: Mango Gustafson MD [Physician] -
[2016-12-06] MEDS: LEVOFLOXACIN INJ 750 MG in PREMIX 1 EACH IV SCH (20:21)
[2016-12-06] MEDS: ASPIRIN EC 81 MG TABLET PO SCH (20:21)
[2016-12-06] MEDS: TEMAZEPAM 15 MG CAPSULE PO PRN (20:21)
[2016-12-06] MEDS: NYSTATIN 500,000 UNIT/5 ML UDCUP SWISH/SWAL SCH (20:27)
[2016-12-06] MEDS: cefTRIAXone 1,000 MG in SODIUM CHLORIDE 0.9% 100 ML IV SCH (23:06)
[2016-12-07 06:20] LABS: Basophils % 0.3 % (0.0-0.8); Eosinophils # 0.5 10*3/uL (0.0-0.87); Eosinophils % 4.8 % (0.00-10.9); Hemoglobin 11.2 GM/DL (14.0-18.0); Immature Granulocytes % 0.5 %; Immature Granulocytes Absolute 0.05 #; Lymphocytes # 2.7 10*3/uL (1.4-4.0); Lymphocytes % 27.7 % (21.2-54.2); Mean Corpuscular HGB Conc 32.9 GM/DL (32-36); Mean Corpuscular Hemoglobin 32 PG (27-34); Mean Corpuscular Volume 96.6 FL (87-102); Mean Platelet Volume 10.6 FL (9.6-12.0); Monocytes # 0.8 10*3/uL (0.11-0.8); Monocytes % 8.6 % (1.7-12.7); Neutrophils # 5.6 10*3/uL (1.4-7.4); Neutrophils % 58.1 % (38.7-73.9); Platelet Count 138 T/CUMM (130-400); Red Blood Count 3.52 MC/CUMM (3.8-5.5); Red Cell Distribution Width 13.2 % (9.3-17.3); White Blood Count 9.7 T/CUMM (4-12)
[2016-12-07 06:53] LABS: Calcium 7.5 MG/DL (8.5-10.1); Magnesium 1.7 MG/DL (1.8-2.4); Osmolality,Calculated 274.5 MOS/KG (273-304); Potassium 3.9 MMOL/L (3.5-5.1)
--- NOTE | 2016-12-07 10:22 | Discharge Summary ---
<Ranjit Gee - Last Filed: 12/07/16 10:42> Hospital Course - Hospital Course Hospital Course: This is very pleasant 89 year old male that presented to the ED at [facility] on 12/03 for a chief compliant of fever and non- productive cough. At time of presentation, the patient was unable to provide an accurate history. His family was present at bedside, they served as historians. They reported a very extensive medical history significant for atrial fibrillation, sick sinus syndrome, transient ischemic attack, depression, GERD, gastric ulcers, and dementia. In addition, the reported a surgical history of pacemaker placement, cholecystectomy and cataract removal. The family reported that patient had been experiencing difficulty breathing at home. The patient had been recently evaluated at the [facility] in [place] for symptoms similar in nature and was informed that he had leukocytosis. At the time of ED presentation, the patient was placed on sock lining stitcher. Shortly thereafter, he was noted to be atrial fibrillation with rapid ventricular response. He was given Cardizem and an EKG was obtained which the did not detect the presence of the pacemaker. Chest radiograph obtained suggested left lower opacity and infiltrates. CT Head was ordered; which benign for any acute intracranial processes.The patient was admitted under the hospitalist services for continuation of care. A cardiology consult was requested. The patient was treated with empiric antibiotics, his anti-arrhythmic medications were adjusted and his condition improved. His pacemaker is fully operable and his condition is stable. Today, we feel that he is appropriate for discharge to a swing bed for continuation of care. Specialty Discharge - Follow Up or Referrals Follow up with: Mango Gustafson MD [Physician] - Discharge Plan - Discharge Medications New Metoprolol Tartrate Tab [Lopressor Tab] 12.5 mg PO BID #30 tablet levoFLOXacin [Levofloxacin] 500 mg PO DAILY #5 tablet Rivaroxaban [Xarelto] 20 mg PO DAILY W/SUPPER #30 tablet Continue Aspirin [Ecotrin] 81 mg PO BEDTIME Lansoprazole [Prevacid] 30 mg PO DAILY Temazepam [Restoril] 1 tablet PO BEDTIME PRN PRN Reason: Restlessness - Follow Up or Referral Follow Up: Mango Gustafson MD [Physician] - - Forms/Instructions Exam - Constitutional Vitals: Period Temp Pulse Resp BP Sys/Wray Pulse Ox Last 24 Hr 97.5 F-99.3 F 71-99 14-20 97-145/56-77 95-97 Discharge Results Labs on day of discharge: Labs from last 24 hours 12/07/16 12/07/16 05:51 05:51 WBC 9.7 RBC 3.52 L Hgb 11.2 L Hct 34.0 L MCV 96.6 MCH 32 MCHC 32.9 RDW 13.2 Plt Count 138 MPV 10.6 Neut % (Auto) 58.1 Lymph % (Auto) 27.7 [place] % (Auto) 8.6 Eos % (Auto) 4.8 Baso % (Auto) 0.3 Neut # (Auto) 5.6 Lymph # (Auto) 2.7 [place] # (Auto) 0.8 Eos # (Auto) 0.5 Baso # (Auto) 0.0 Immature Gran % 0.5 Nucleated RBC % 0.0 Immature Gran # 0.05 Nucleated RBCs # 0.00 Sodium 139 Potassium 3.9 Chloride 107 Carbon Dioxide 26 Anion Gap 9.9 BUN 9 Creatinine 1.00 GFR Calculation 63 BUN/Creatinine Ratio 9.00 Glucose 85 Calculated Osmolality 274.5 Calcium 7.5 L Magnesium 1.7 L DS: Provider Date of admission: 12/03/16 22:50 Primary care physician: Steffen Hadley MD Attending physician on admission: Darwin Gavin MD Consults: 12/03/16 22:58 Consult to Physician [CONS] Routine Comment: On-call cardiology/A. fib RVR despite PPM Consulting Provider: Chace Keith Consult to Specialist Group: Cardiology When should Consulting Provider be notified: In am Person Notified: Paige Date Notified: 12/04/16 Time Notified: 07:24 12/04/16 00:48 Consult to Dietitian [CONS] Routine Reason for Dietitian: Diet Recommendations 12/05/16 10:52 Consult to Case Mgmt/Social Srvs [CONS] Routine Reason for Case Mgmt/Social Srvs: Psychiatric Management Consult Comment: Patient with delirium, confusion, sundowner syndrome- consider [facility] 12/06/16 09:05 Consult to Physical Therapy [CONS] Routine Reason for Physical Therapy: Evaluate and Treat Consult Comment: for placement Discharging clinician: Ranjit Gee CNP <Jadiel Montero - Last Filed: 12/07/16 11:13> Hospital Course - Hospital Course Hospital Course: Patient seen and examined along with LUIS Gee, agree with hospital course as documented. CT C/A/P done with no overt signs of infection. Leukocytosis is now resolved. Blood cultures negative and patient has been afebrile since 12/04/16. Given new onset paroxysmal atrial fibrillation, will start xarelto. He will follow-up with Dr. Gustafson. - Time spent with patient Time with patient DS: Less than 30 minutes Diagnosis - Discharge Diagnosis (1) Leukocytosis Status: Resolved (2) Atrial fibrillation with RVR Status: Chronic (3) Left lower lobe pneumonia Status: Resolved (4) Altered mental status Status: Acute Discharge Plan - Discharge Data Condition at Discharge: Stable Discharge Diet: advance to your usual diet Activity: as per physical therapy Hygiene: no restrictions Weight Bearing at Discharge: weight bear as tolerated Contact your physician if you experience:: fever over 101 Exam - Constitutional General appearance: normal weight - Head Head exam: Present: normocephalic, atraumatic - Eye Eye exam: Present: EOMI Pupils: Present: GHANSHYAM - ENT ENT exam: Present: normal exam - Neck Neck exam: Present: normal inspection - Respiratory Respiratory exam: Present: clear to auscultation bilaterally. Absent: rhonchi, wheezes - Cardiovascular Cardiovascular exam: Present: regular rate and rhythm - GI/Abdominal GI/Abdominal exam: Present: normal bowel sounds, soft. Absent: tenderness, rebound - Extremities Exam Extremities exam: Present: normal inspection - Back Exam Back exam: Present: normal inspection - Neurological Exam Neurological exam: Present: alert, altered - Psychiatric Psychiatric exam: Present: normal affect, normal mood - Skin Skin exam: Present: warm, intact
[2016-12-07] MEDS ORDERED: MAGNESIUM HYDROXIDE SUSP 30 ML UDCUP PO ONE (10:45)
[2016-12-07] MEDS: METOPROLOL TARTRATE 25 MG TABLET PO SCH (11:00)
[2016-12-07] MEDS: NYSTATIN 500,000 UNIT/5 ML UDCUP SWISH/SWAL SCH ×2 (11:01→14:02)
[2016-12-07] MEDS: PANTOPRAZOLE 40 MG TABLET PO SCH (11:01)
[2016-12-07 12:13] VITALS: BP 127/76
--- NOTE | 2016-12-07 12:41 | Cardiology Progress Note ---
Anthony Walker April RN, am scribing for, and in the presence of, Clarisse Slade DO 12 :41. 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 Gustafson Mr. Kemp is seen resting in bed in no acute distress. He continues to be confused. He is without complaint and states he wants to go home, but he says he does not know where home is. manager monitoring currently shows atrial fibrillation with heart rate of 109. Magnesium today is 1.7. I saw and examined the patient with Ms. Cruz. He is looking forward to going to [facility] Today. His bags are packed and sitting in his bed. He has no complaints and states he is excited about "being reunited with my ." Exam (Progress Note) - Constitutional Vitals: Period Temp Pulse Resp BP Sys/Wray Pulse Ox Last 24 Hr 97.5 F-98.6 F 85-99 14-20 97-145/56-77 95-97 General appearance: normal weight, no acute distress - Head Head exam: Absent: abrasion, hematoma - Eye Eye exam: Absent: periorbital swelling, laceration to eyelids - Respiratory Respiratory exam: Present: clear to auscultation bilaterally. Absent: accessory muscle use, chest wall tenderness - Cardiovascular Cardiovascular exam: Present: irregular rhythm. Absent: rubs - GI/Abdominal GI/Abdominal exam: Present: normal bowel sounds, soft. Absent: distended, tenderness - Extremities Exam Extremities exam: Absent: calf tenderness, edema - Neurological Exam Neurological exam: Present: alert. Absent: oriented X3 - Skin Skin exam: Present: warm, dry Result/EKG - Labs CBC & BMP: 12/07/16 05:51 12/07/16 05:51 Lab Results: I have reviewed the past 24 hour labs Labs: Laboratory Results - last 24 hr 12/07/16 12/07/16 05:51 05:51 WBC 9.7 RBC 3.52 L Hgb 11.2 L Hct 34.0 L MCV 96.6 MCH 32 MCHC 32.9 RDW 13.2 Plt Count 138 MPV 10.6 Neut % (Auto) 58.1 Lymph % (Auto) 27.7 [place] % (Auto) 8.6 Eos % (Auto) 4.8 Baso % (Auto) 0.3 Neut # (Auto) 5.6 Lymph # (Auto) 2.7 [place] # (Auto) 0.8 Eos # (Auto) 0.5 Baso # (Auto) 0.0 Immature Gran % 0.5 Nucleated RBC % 0.0 Immature Gran # 0.05 Nucleated RBCs # 0.00 Sodium 139 Potassium 3.9 Chloride 107 Carbon Dioxide 26 Anion Gap 9.9 BUN 9 Creatinine 1.00 GFR Calculation 63 BUN/Creatinine Ratio 9.00 Glucose 85 Calculated Osmolality 274.5 Calcium 7.5 L Magnesium 1.7 L - EKG EKG results: interpreted by me EKG shows: atrial fibrillation Specialty Discharge - Follow Up or Referrals Follow up with: Mango Gustafson MD [Physician] - 12/27/16 2:10 pm IYany Shea, DO, personally performed the services described in this documentation, ascribed by Dolores Cruz RN in my presence, and it is both accurate and complete [id number] .
== END 2016-12-07 13:55 | DRG 308 ==
LOC: N.ED 19:13 → SUATTDRO 22:50 → N.EDINP 22:50 → N.5E 23:28
PROVIDERS: ADMIT Internal Medicine; ATTEND Internal Medicine

== ENCOUNTER 2017-01-24 13:18 | Inpatient (IN) ==
[2017-01-24] MEDS ORDERED: SODIUM CHLORIDE 0.9% 500 ML IV STA (14:09)
--- NOTE | 2017-01-24 14:32 | Emergency Department Note ---
Hailey Walker Hilary, am scribing for, and in the presence of, Derek Shah MD 14: 13. Alyssa Walker James D, MD, personally performed the services described in this documentation, ascribed by Lexii Hart in my presence, and it is both accurate and complete 432 . Arrival - Arrival Chief Complaint: Fall Stated Complaint: fall last night ED Nursing Triage Note: fell at [facility] at around midnight and hit his head. has bruising and swelling to left eye. pt reports he laid on floor for awhile after fall. Mode of Arrival: Wheelchair Limitations: No Limitations Source: Patient, RN Notes Reviewed Time Seen by Provider: 01/24/17 13:56 - History of Present Illness HPI Narrative: Pt is 89 y/o male presenting to the ED with c/o a fall which onset last night. Pt fell at the [facility] and hit his head sometime during the night and was lying on the floor for awhile. Pt states that he has to get up on his own to go the bathroom because no one comes to help and he fell and hit his head. He has been at this residential for a little over a month. No other complaints or problems stated in the ED. Onset (ago): hour(s) Consistency: constant Severity: mild Severity scale (1-10): 1 Allergies/Adverse Reactions: Allergies Allergy/AdvReac Type Severity Reaction Status Date / Time Sulfa (Sulfonamide Allergy Anxiety Verified 11/14/16 14:47 Antibiotics) Home Medications: Home Medications Medication Instructions Recorded Confirmed Type Aspirin [Ecotrin] 81 mg PO DAILY 02/12/16 12/30/16 History Lansoprazole [Prevacid] 30 mg PO DAILY 02/12/16 12/30/16 History Aspirin [Lo-Dose Aspirin EC] 81 mg PO DAILY 12/30/16 12/30/16 History Buspirone HCl 5 mg PO BID 12/30/16 12/30/16 History Donepezil [Aricept] 5 mg PO DAILY 12/30/16 12/30/16 History HydrOXYzine PAMOATE CAP [Vistaril 25 mg PO RT Q6H PRN 12/30/16 12/30/16 History Cap] Lansoprazole 30 mg PO DAILY 12/30/16 12/30/16 History Magnesium Hydroxide Susp [Milk of 30 ml PO Q8HR PRN 12/30/16 12/30/16 History Magnesia] Megestrol Liquid [Megace Liquid] 10 ml PO BID W/MEALS 12/30/16 12/30/16 History Memantine [Namenda] 10 mg PO BID 12/30/16 12/30/16 History Metoprolol Tartrate Tab [Lopressor 12.5 mg PO BID 12/30/16 12/30/16 History Tab] Metoprolol Tartrate Tab [Lopressor 12.5 mg PO BID 12/30/16 12/30/16 History Tab] Rivaroxaban [Xarelto] 15 mg PO DAILY W/SUPPER 12/30/16 12/30/16 History Temazepam [Restoril] 1 capsule PO BEDTIME 12/30/16 12/30/16 History Temazepam [Restoril] 15 mg PO BEDTIME 12/30/16 12/30/16 History Trazodone HCl 12.5 mg PO PC SUPPER 12/30/16 12/30/16 History Trazodone HCl 25 mg PO BEDTIME 12/30/16 12/30/16 History traMADol TAB [Ultram] 50 mg PO BID 12/30/16 12/30/16 History Review of System - Review of System 12 point system: reviewed and no additional remarkable complaints except as stated - Review of System Constitutional: Absent: fever Eyes: Present: pain (left eye swollen ) Musculoskeletal: Absent: leg pain, other (hip pain) Medical,Surgical,& Family Hx - Medical History Cardio: History of: Cardiac Dysrhythmia, Pacemaker (this admit), Cardiovascular Problems Psychological: History of: Depression No history of: Behavior Problems, Violent Behavior, Psychiatric Problems Neurology: History of: Dementia, TIA (possible) No history of: Seizures HEENT: History of: Ear Problem (hearing aides), Dental Problems (Dentures) Gastrointestinal: History of: GERD Comment Only: Gastrointestinal Cancer (ulcers) Musculoskeletal: History of: Musculoskeletal Problems (hip) Other: History of: Skin Problems (Status post radiation to right nasal lesion) - Surgical History Cardiac Surgeries: Sugical HX of: Internal Defibrillator HEENT Surgeries: Surgical HX of: Eye Surgery (bilateral cataract) Abdominal Surgeries: Surgical HX of: Abdominal Surgery, Cholecystectomy Orthopedic Surgeries: Surgical HX of;: Orthopedic Surgery - Family History Family History: Reports;: Family Stroke - Social History Smoking Status: Never smoker Exam Physical Examination: GENERAL: This is a chronically ill appearing white male, well-developed in no apparent distress. VITAL SIGNS: Temperature: 98.1 Pulse: 92L Respiratory: 18 Blood Pressure: 129 /61 O2 Sat: 99 HEENT: Head is normocephalic and atraumatic. Periporbital ecchymosis of the left eye Pupils are equally round and reactive to light. Extraocular movement are intact. Oropharynx is benign with moist mucous membranes. NECK: Neck is soft and supple without tenderness. There are no masses. There is no lymphadenopathy. LUNGS: Lungs are clear to auscultation bilaterally. Chest rises symmetrically. There is no chest wall tenderness. CV: Heart is regular rate and rhythm without murmurs, rubs, or gallops. ABDOMEN: Abdomen is soft, non-tender to palpation. There are no abnormal masses palpated. There is no organomegaly. Bowel sounds are present and active. SKIN: Skin is warm and dry. No rash. EXTREMITIES: Patient has full range of motion without tenderness. There is no pedal edema. NEUROLOGIC: Awake, alert, and oriented x4. Cranial nerves II through XII are grossly intact. There are no motorsensory deficits. PSYCHIATRIC: Normal affect. Normal mood. Vital Signs: Vital Signs Temperature 98.1 F 01/24/17 13:30 Pulse Rate 92 H 01/24/17 13:30 Respiratory Rate 18 01/24/17 13:30 Blood Pressure 129/61 01/24/17 13:30 O2 Sat by Pulse Oximetry 99 01/24/17 13:30 Course - Consultations Consultation #1: Discussed with Dr. Jacobson. Patient will be admitted to his service. Initial orders written for him. He will assume patient's care upon arrival to the [facility]. Time: 16:12 Results - Labs CBC & BMP: 01/24/17 14:42 01/24/17 14:42 Lab Results: I have reviewed the patients labs Labs: Laboratory Tests 01/24/17 14:42 WBC 16.1 H Hgb 12.7 L Hct 38.0 L Plt Count 183 Laboratory Tests 01/24/17 14:42 Neut # (Auto) 8.3 H Lymph # (Auto) 6.0 H [place] # (Auto) 1.2 H Laboratory Tests 01/24/17 01/24/17 01/24/17 14:42 14:42 14:42 INR 1.3 PT Patient/Control Mix 13.5 D Circ Anticoag PTT 35.5 Sodium 142 Potassium 4.1 Chloride 111 H Carbon Dioxide 21 BUN 22 H Glucose 118 H Total Protein 5.7 L Albumin 2.9 L Albumin/Globulin Ratio 1.0 L Urine Color Yellow Urine Appearance Clear Urine Urobilinogen < 2.0 H - EKG EKG results: interpreted by ERMD - Impressions EKG: Normal sinus rhythm with rate of 70, left axis deviation, right bundle branch block, voltage criteria for LVH. - Diagnostic Findings Procedure: Chest x-ray: report reviewed by me, image reviewed by me (No acute process compared to the previous study. Stable cardiomegaly. Pacemaker as before. Mild increased pulmonary markings bilaterally.), CT: report reviewed by me, image reviewed by me (Cervical Spine: Motion artifact. No definite acute fracture. 1.7mm anterolisthesis of C2 in relationship to C3. 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 HEAD: No aute intracranial abnormality is identified. Chronic left basal ganglia lacunar infarction. Sinusitis with incomplete evaluation of the paranasal sinuses. ) Disposition Clinical Impression: Fall, Chronic anticoagulation, Dementia Case discussed with: patient, patient's family Disposition: Still a Patient Condition: Stable Time of Disposition: 16:12
--- NOTE | 2017-01-24 14:34 | CT Report ---
Referring physician: Derek Shah Exam: CT brain without contrast Date: 01/24/2017 Comparison: 12/03/2016 Reason: Head trauma, fall Technique: Axial images of the head were obtained without the use of contrast. Total DLP was 1033.00 mGy*cm. Findings: No hydrocephalus or midline shift is present. There is no evidence of an acute infarction, recent intracranial hemorrhage or abnormal mass effect. Persistent atrophy and diffuse cerebral hypodensities. Chronic left basal ganglia lacunar infarction. The osseous structures appear intact. The mastoid air cells are clear. Interval development of fluid and mucosal thickening in the ethmoid air cells and frontal sinuses. Incomplete evaluation of paranasal sinuses. Impression: No acute intracranial abnormality is identified. Chronic left basal ganglia lacunar infarction. Sinusitis with incomplete evaluation of the paranasal sinuses. The CT exam was performed using one or more of the following dose reduction techniques: Automated exposure control and adjustment of the mA and/or kV according to patient size. PROCEDURE INTERPRETED AT [facility] DEPARTMENT OF RADIOLOGY Final Report Signed by: Dr. Torri Do
--- NOTE | 2017-01-24 14:39 | CT Report ---
Exam: CT cervical spine without contrast Date: 01/24/2017 Comparison: None Reason: Neck trauma, neck pain after fall Technique: Axial images of the cervical spine were obtained without the use of contrast. Sagittal and coronal reformatted images were also acquired. Total DLP is 270.30 mGy*cm. Findings: Straightening of the cervical spine with 1.7 mm anterolisthesis of C2 in relationship to C3. Sclerosis and osteophytes.. The scans are degraded by motion artifact with no definite fracture, dislocation, or spinal cord pathology. Arterial calcifications are noted. At C2-C3, osteophyte/disc complex which contacts the thecal sac. No spinal stenosis or foraminal stenosis. At C3-C4, osteophyte/disc complex which contacts the thecal sac. No spinal stenosis with moderate least severe bilateral foraminal stenosis. At C4-C5, diffuse osteophyte/disc complex which compresses the thecal sac. No spinal stenosis with moderate bilateral foraminal stenosis. At C5-C6, diffuse osteophyte/disc complex which compresses the thecal sac. No spinal stenosis with moderately severe bilateral foraminal stenosis. At C6-C7, diffuse osteophyte/disc complex which compresses the thecal sac. No spinal stenosis with moderate bilateral foraminal stenosis. At C7-T1, no disc protrusion, spinal stenosis, or foraminal stenosis. Impression: Motion artifact. No definite acute fracture. 1.7 mm anterolisthesis of C2 in relationship to C3. 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 This CT exam was performed using one or more of the following dose reduction techniques: Automatic exposure control, adjustment of the MA and/or KV according to patient size, or use of iterative reconstruction technique. PROCEDURE INTERPRETED AT [facility] DEPARTMENT OF RADIOLOGY Final Report Signed by: Dr. Torri Do
--- NOTE | 2017-01-24 14:43 | XRay Report ---
History: Shortness of breath Date: 01/24/2017 Study: Chest x-ray AP portable Comparison exam: December 03, 2016 There is continued cardiomegaly. The mediastinal contours are unchanged. The pulmonary vasculature is not engorged. The lungs are generally clear for shallow breath. There is no gross pleural effusion. A left subclavian dual-lead transverse pacemaker is well-positioned. Osseous structures are unchanged. Impression: No acute process compared to the previous study. Stable cardiomegaly. Pacemaker as before PROCEDURE INTERPRETED AT [facility] DEPARTMENT OF RADIOLOGY Final Report Signed by: Dr. Lamar Lopez
--- NOTE | 2017-01-24 14:44 | EKG Report ---
Stationary ECG Study [facility] ER Test Date: 01/24/2017 2:42:33 PM Pat Name: ALEN JAVIER Department: Room: Gender: M Rn Appeals: : [phone] Requested by: Derek Montanez Order Number: [id number] Reading MD: BARBRA BHATIA Intervals [place] Rate: 70 P: 40 WV: 173 QRS: -35 QRSD: 133 T: 0 QT: 392 QTc: 412 Interpretive Statements SINUS RHYTHM LEFT AXIS DEVIATION RIGHT BUNDLE BRANCH BLOCK VOLTAGE CRITERIA FOR LVH Electronically Signed On 01-24-17 16:34:43 CDT by BARBRA BHATIA [email or web address]
[2017-01-24 14:51] LABS: Basophils # 0.1 10*3/uL (0.0-0.2); Basophils % 0.5 % (0.0-0.8); Eosinophils # 0.2 10*3/uL (0.0-0.87); Eosinophils % 1.2 % (0.00-10.9); Hemoglobin 12.7 GM/DL (14.0-18.0); Immature Granulocytes % 2.3 %; Immature Granulocytes Absolute 0.37 #; Mean Corpuscular HGB Conc 33.4 GM/DL (32-36); Mean Corpuscular Hemoglobin 32 PG (27-34); Mean Platelet Volume 10.1 FL (9.6-12.0); Monocytes # 1.2 10*3/uL (0.11-0.8); Monocytes % 7.7 % (1.7-12.7); Neutrophils # 8.3 10*3/uL (1.4-7.4); Neutrophils % 51.3 % (38.7-73.9); Platelet Count 183 T/CUMM (130-400); Red Cell Distribution Width 14.6 % (9.3-17.3); White Blood Count 16.1 T/CUMM (4-12)
[2017-01-24 15:04] LABS: INR 1.3; PT Patient Result 13.5 SECS; Partial Thromboplastin Time 35.5 SECS (0-40)
[2017-01-24 15:50] LABS: Albumin 2.9 G/DL (3.4-5.0); Apearance,Urine CLEAR (Clear); Bilirubin,Total 0.6 MG/DL (0.2-1.0); Bilirubin,Urine Negative (Negative); Blood, Urine Negative (Negative); Calcium 8.5 MG/DL (8.5-10.1); Glucose,Urine (UA) Negative (Negative); Ketones,Urine Negative (Negative); Mucus,Urine Occasional /LPF (Occasional); Nitrite,Urine Negative (Negative); Osmolality,Calculated 286.1 MOS/KG (273-304); Potassium 4.1 MMOL/L (3.5-5.1); Protein,Urine Negative; RBC,Urine <1 /HPF (0-4); Total Protein 5.7 G/DL (6.4-8.3); Urine Color Yellow (Yellow); Urine Specific Gravity 1.015 (1.001-1.035); Urine Urobilinogen < 2.0 EU/DL (0.2-1.0)
[2017-01-24] MEDS ORDERED: ONDANSETRON 4 MG/2 ML VIAL IV PRN (17:17)
[2017-01-24] MEDS ORDERED: ACETAMINOPHEN 325 MG TABLET PO PRN (17:17)
[2017-01-24] MEDS: SODIUM CHLORIDE 0.9% 1,000 ML IV SCH (18:22)
[2017-01-24] MEDS: DOCUSATE SODIUM 100 MG CAPSULE PO SCH (22:05)
[2017-01-24] MEDS ORDERED: HydrOXYzine PAMOATE 25 MG CAPSULE PO PRN (22:16)
[2017-01-24] MEDS ORDERED: MAGNESIUM HYDROXIDE SUSP 30 ML UDCUP PO PRN (22:16)
[2017-01-25] MEDS: TEMAZEPAM 15 MG CAPSULE PO SCH ×2 (00:05→21:06)
[2017-01-25] MEDS: traZODone 50 MG TABLET PO SCH (00:06)
[2017-01-25 03:10] LABS: Apearance,Urine CLEAR (Clear); Bilirubin,Urine Negative (Negative); Blood, Urine Negative (Negative); Glucose,Urine (UA) Negative (Negative); Ketones,Urine Negative (Negative); Mucus,Urine Occasional /LPF (Occasional); Nitrite,Urine Negative (Negative); Protein,Urine Negative; RBC,Urine 1 /HPF (0-4); Urine Color Straw (Yellow); Urine Specific Gravity 1.012 (1.001-1.035); Urine Urobilinogen < 2.0 EU/DL (0.2-1.0); WBC,Urine <1 /HPF (0-6)
[2017-01-25] MEDS: SODIUM CHLORIDE 0.9% 1,000 ML IV SCH ×3 (05:27→23:15)
[2017-01-25 05:43] LABS: Basophils # 0.1 10*3/uL (0.0-0.2); Basophils % 0.4 % (0.0-0.8); Eosinophils # 0.2 10*3/uL (0.0-0.87); Eosinophils % 1.8 % (0.00-10.9); Hematocrit 34.8 VOL% (42.0-52.0); Hemoglobin 11.7 GM/DL (14.0-18.0); Immature Granulocytes % 2.4 %; Immature Granulocytes Absolute 0.33 #; Lymphocytes # 5.1 10*3/uL (1.4-4.0); Lymphocytes % 37.3 % (21.2-54.2); Mean Corpuscular HGB Conc 33.6 GM/DL (32-36); Mean Corpuscular Hemoglobin 32 PG (27-34); Mean Corpuscular Volume 95.6 FL (87-102); Mean Platelet Volume 9.7 FL (9.6-12.0); Monocytes # 1.1 10*3/uL (0.11-0.8); Monocytes % 7.7 % (1.7-12.7); Neutrophils # 6.9 10*3/uL (1.4-7.4); Neutrophils % 50.4 % (38.7-73.9); Platelet Count 155 T/CUMM (130-400); Red Blood Count 3.64 MC/CUMM (3.8-5.5); Red Cell Distribution Width 14.6 % (9.3-17.3); White Blood Count 13.7 T/CUMM (4-12)
[2017-01-25 06:27] LABS: Ferritin 261.1 ng/ml (26-388); Free T4 (Free Thyroxine) 0.99 NG/DL (0.76-1.46); Potassium 4.1 MMOL/L (3.5-5.1); Risk Ratio 3.61; Thyroid Stimulating Hormone 1.26 uIU/ml (0.358-3.74)
--- NOTE | 2017-01-25 08:28 | Family Practice History&Phys ---
Assessment and Plan (1) Head trauma secondary to fall Status: Acute Assessment and plan: Patient fell and hit his head it nursing care facility. In view of degree of trauma was patient being on Xarelto he was admitted for close observation and therapy Current Visit: Yes (2) Paroxysmal atrial fibrillation Status: Chronic Assessment and plan: Atrial fibrillation is presently stable. He is on chronic Xarelto. This is obviously a problem with his frequent falls. Current Visit: Yes (3) Permanent pacemaker Status: Chronic Assessment and plan: Patient has a permanent pacemaker was internal defibrillator. Pacemaker initially was placed for sick sinus syndrome Current Visit: Yes (4) Dementia Status: Chronic Assessment and plan: Patient has significant dementia Current Visit: Yes (5) Chronic anticoagulation Status: Acute Assessment and plan: Patient on chronic anticoagulation for paroxysmal atrial fibrillation Current Visit: Yes (6) Sick sinus syndrome Status: Chronic Assessment and plan: History of sick sinus syndrome with permanent pacemaker Current Visit: No History of Present Illness Chief complaint: Trauma secondary to falls History of present illness: Mr. Kemp is a 89 year old male Patient is a 89-year-old white male well-known to me who is presently in a nursing care facility who was brought to emergency room by ambulance after he fell. Patient was found laying in the bathroom after a fall. He apparently struck his head and the staff felt that he was more confused than normal. He has severe dementia although is able to carry on a conversation. Seen in emergency room head CT is unremarkable but in view of degree of trauma was admitted for further evaluation therapy. He apparently has had several falls recently. Home Medications Medication Instructions Recorded Confirmed Type Lansoprazole [Prevacid] 30 mg PO DAILY 02/12/16 01/24/17 History Aspirin [Lo-Dose Aspirin EC] 81 mg PO DAILY 12/30/16 01/24/17 History Buspirone HCl 5 mg PO BID 12/30/16 01/24/17 History Donepezil [Aricept] 5 mg PO DAILY 12/30/16 01/24/17 History HydrOXYzine PAMOATE CAP [Vistaril 25 mg PO RT Q6H PRN 12/30/16 01/24/17 History Cap] Magnesium Hydroxide Susp [Milk of 30 ml PO Q8HR PRN 12/30/16 01/24/17 History Magnesia] Megestrol Liquid [Megace Liquid] 10 ml PO BID W/MEALS 12/30/16 01/24/17 History Memantine [Namenda] 10 mg PO BID 12/30/16 01/24/17 History Metoprolol Tartrate Tab [Lopressor 12.5 mg PO BID 12/30/16 01/24/17 History Tab] Rivaroxaban [Xarelto] 15 mg PO DAILY W/SUPPER 12/30/16 01/24/17 History Temazepam [Restoril] 15 mg PO BEDTIME 12/30/16 01/24/17 History Trazodone HCl 50 mg PO BEDTIME 12/30/16 01/24/17 History traMADol TAB [Ultram] 50 mg PO BID 12/30/16 01/24/17 History Allergies Allergy/AdvReac Type Severity Reaction Status Date / Time Sulfa (Sulfonamide Allergy Anxiety Verified 11/14/16 14:47 Antibiotics) Medical,Surgical,& Family Hx - Medical History Cardio: History of: Cardiac Dysrhythmia, Pacemaker (this admit), Cardiovascular Problems Psychological: History of: Behavior Problems, Depression No history of: Violent Behavior, Psychiatric Problems Neurology: History of: Dementia, TIA (possible) No history of: Seizures HEENT: History of: Ear Problem (hearing aides), Dental Problems (Dentures) Respiratory: History of: Pneumonia (just got over pneumonia, still has hackey cough.) Gastrointestinal: History of: GERD Comment Only: Gastrointestinal Cancer (ulcers) Musculoskeletal: History of: Musculoskeletal Problems (hip) Other: History of: Skin Problems (Status post radiation to right nasal lesion) - Surgical History Cardiac Surgeries: Sugical HX of: Internal Defibrillator HEENT Surgeries: Surgical HX of: Eye Surgery (bilateral cataract) Abdominal Surgeries: Surgical HX of: Abdominal Surgery, Cholecystectomy Orthopedic Surgeries: Surgical HX of;: Orthopedic Surgery (knee.) - Family History Family History: Reports;: Family Cancer (mother-breast ca and brother with ca.) , Family Stroke - Social History Smoking Status: Never smoker Frequency of Alcohol Use: None Type of Drug Use: None Marital Status: 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 Functional capacity: uses cane/walker Exam - Constitutional Vitals: Period Temp Pulse Resp BP Sys/Wray Pulse Ox Last 24 Hr 98.1 F-98.9 F 71-92 16-20 124-149/51-74 94-99 General appearance: mild distress - Head Head exam: Present: normal inspection, other (Patient has ecchymosis around his left eye) - Eye Pupils: Present: GHANSHYAM - ENT ENT exam: Present: normal exam - Respiratory Respiratory exam: Present: clear to auscultation bilaterally - Cardiovascular Cardiovascular exam: Present: irregular rhythm - GI/Abdominal GI/Abdominal exam: Present: normal bowel sounds, soft - Extremities Exam Extremities exam: Present: normal inspection - Back Exam Back exam: Present: normal inspection - Neurological Exam Neurological exam: Present: altered - Psychiatric Psychiatric exam: Present: flat affect, other (Patient able to answer some questions but has significant short-term memory loss) - Skin Skin exam: Present: normal color Results - Labs CBC & BMP: 01/25/17 05:35 01/25/17 05:35
[2017-01-25] MEDS: DOCUSATE SODIUM 100 MG CAPSULE PO SCH ×2 (08:45→21:06)
[2017-01-25] MEDS: traMADol 50 MG TABLET PO SCH ×2 (08:45→23:41)
[2017-01-25] MEDS: MEGESTROL 400 MG/10 ML UDCUP PO SCH ×2 (08:45→16:13)
[2017-01-25] MEDS: ASPIRIN EC 81 MG TABLET PO SCH (08:45)
[2017-01-25] MEDS: PANTOPRAZOLE 40 MG TABLET PO SCH (08:45)
[2017-01-25] MEDS: MEMANTINE 10 MG TABLET PO SCH ×2 (08:45→21:06)
[2017-01-25] MEDS: METOPROLOL TARTRATE 25 MG TABLET PO SCH ×2 (08:45→21:06)
[2017-01-25] MEDS: busPIRone 5 MG TABLET PO SCH ×2 (08:45→21:06)
[2017-01-25] MEDS ORDERED: DONEPEZIL 5 MG TABLET PO SCH (09:00)
--- NOTE | 2017-01-25 10:13 | Ultrasound Report ---
Carotid artery ultrasound Indication: Syncope, abnormal gait Comparison: None available Color Doppler flow and spectral analysis was performed. Findings: Small amount of atherosclerotic plaque is present in both proximal internal carotid arteries. The peak systolic velocity in the right is 174 cm/s . Ratio of flow is 1.8. The peak systolic velocity in the left is 124 cm/s . Ratio of flow is 1.1 Bilateral antegrade vertebral flow is seen. Impression: No evidence of hemodynamically significant stenosis is seen, 0-49% estimated stenosis. Consensus conference on the carotid ultrasound criteria used. Ultrasound images were captured and stored. PROCEDURE INTERPRETED AT [facility] DEPARTMENT OF RADIOLOGY Final Report Signed by: Dr. Jim Morales
[2017-01-25] MEDS: QUEtiapine 25 MG TABLET PO SCH ×2 (16:13→21:06)
[2017-01-25] MEDS ORDERED: RIVAROXABAN 15 MG TABLET PO SCH (17:00)
[2017-01-26] MEDS: traZODone 50 MG TABLET PO SCH (05:04)
[2017-01-26] MEDS: SODIUM CHLORIDE 0.9% 1,000 ML IV SCH (06:31)
[2017-01-26 07:45] VITALS: BP 119/61
--- NOTE | 2017-01-26 08:25 | Discharge Summary ---
Hospital Course - Hospital Course Hospital Course: Mr. Kemp is a 89 year old male Patient is a 89-year-old white male well-known to me who is presently in a nursing care facility who was brought to emergency room by ambulance after he fell. Patient was found laying in the bathroom after a fall. He apparently struck his head and the staff felt that he was more confused than normal. He has severe dementia although is able to carry on a conversation. Seen in emergency room head CT is unremarkable but in view of degree of trauma was admitted for further evaluation therapy. He apparently has had several falls recently. DISCHARGE SUMMARY - patient was admitted hospital placed under close observation and therapy. There was concern about the fact that he had head trauma being on the anticoagulant Xarelto. The patient was monitored closely and did not exhibit any neurological deficits. He remains confused and disoriented which is his stable state. In view of the stable condition will discharge back to a nursing care facility. I will follow him at that facility and have them call with any problems develop. Diagnosis - Discharge Diagnosis (1) Head trauma secondary to fall Status: Acute (2) Paroxysmal atrial fibrillation Status: Chronic (3) Permanent pacemaker Status: Chronic (4) Dementia Status: Chronic (5) Chronic anticoagulation Status: Chronic (6) Sick sinus syndrome Status: Chronic Specialty Discharge - Follow Up or Referrals Follow up with: Mohsen Jacobson DO [Physician] - (I will follow-up at shelter) Discharge Plan - Discharge Data Disposition: Disch/Xfer to Group Home [facility] Condition at Discharge: Stable Discharge Diet: advance to your usual diet Activity: ambulate only with your walker Weight Bearing at Discharge: weight bear as tolerated Contact your physician if you experience:: fever over 101, Nausea/Vomiting, Shortness of breath - Discharge Medications New Donepezil [Aricept] 10 mg PO DAILY #30 tablet QUEtiapine [SEROquel] 25 mg PO BID #60 tablet Continue Lansoprazole [Prevacid] 30 mg PO DAILY Temazepam [Restoril] 15 mg PO BEDTIME HydrOXYzine PAMOATE CAP [Vistaril Cap] 25 mg PO Q6H PRN PRN Reason: Anxiety Buspirone HCl 5 mg PO BID Trazodone HCl 50 mg PO BEDTIME Megestrol Liquid [Megace Liquid] 10 ml PO BID W/MEALS traMADol TAB [Ultram] 50 mg PO Q12H PRN PRN Reason: Pain Metoprolol Tartrate Tab [Lopressor Tab] 12.5 mg PO BID Magnesium Hydroxide Susp [Milk of Magnesia] 30 ml PO Q8HR PRN PRN Reason: Constipation Memantine [Namenda] 10 mg PO BID Discontinued Donepezil [Aricept] 5 mg PO DAILY No Action Aspirin EC Tab 81 mg PO DAILY Acetaminophen Tab [Tylenol Tab] 650 mg PO Q6H PRN PRN Reason: Pain - Follow Up or Referral Follow Up: Mohsen Jacobson DO [Physician] - (I will follow-up at shelter) - Forms/Instructions Instructions: Fall Prevention for Older Adults (GEN) Exam - Constitutional Vitals: Period Temp Pulse Resp BP Sys/Wray Pulse Ox Last 24 Hr 97.1 F-98.8 F 60-80 16-20 94-150/51-68 96-98 General appearance: mild distress - Head Head exam: Present: normal inspection, other (area of ecchymosis around his left orbit) - Eye Pupils: Present: GHANSHYAM - ENT ENT exam: Present: other (area of ecchymosis around her left orbit) - Neck Neck exam: Present: normal inspection - Respiratory Respiratory exam: Present: clear to auscultation bilaterally - Cardiovascular Cardiovascular exam: Present: irregular rhythm - GI/Abdominal GI/Abdominal exam: Present: normal bowel sounds, soft - Extremities Exam Extremities exam: Present: full ROM - Back Exam Back exam: Present: normal inspection - Neurological Exam Neurological exam: Present: altered, other (patient is confused and disoriented secondary to dementia. He was back to his stable state at time of discharge) - Psychiatric Psychiatric exam: Present: flat affect, other (patient is confused and disoriented consistent with his known dementia) - Skin Skin exam: Present: normal color DS: Provider Date of admission: 01/24/17 16:15 Primary care physician: Steffen Hadley MD Attending physician on admission: Mohsen Jacobson DO Consults: 01/24/17 17:17 Consult to Case Mgmt/Social Srvs [CONS] Routine Reason for Case Mgmt/Social Srvs: Discharge Planning 01/24/17 18:19 Consult to Dietitian [CONS] Routine Reason for Dietitian: Dietary Consult 01/25/17 08:25 Consult to Physical Therapy [CONS] Routine Reason for Physical Therapy: Gait Training Start Therapy: Today Consult Comment: Help patient with ambulation Discharging clinician: Mohsen Jacobson DO
[2017-01-26] MEDS ORDERED: DONEPEZIL 10 MG TABLET PO SCH (09:00)
[2017-01-26] MEDS: ASPIRIN EC 81 MG TABLET PO SCH (09:03)
[2017-01-26] MEDS: PANTOPRAZOLE 40 MG TABLET PO SCH (09:03)
[2017-01-26] MEDS: MEMANTINE 10 MG TABLET PO SCH (09:03)
[2017-01-26] MEDS: busPIRone 5 MG TABLET PO SCH (09:03)
[2017-01-26] MEDS: traMADol 50 MG TABLET PO SCH (09:03)
[2017-01-26] MEDS: QUEtiapine 25 MG TABLET PO SCH (09:03)
[2017-01-26] MEDS: MEGESTROL 400 MG/10 ML UDCUP PO SCH (09:03)
[2017-01-26] MEDS: DOCUSATE SODIUM 100 MG CAPSULE PO SCH (09:03)
[2017-01-26] MEDS: METOPROLOL TARTRATE 25 MG TABLET PO SCH (09:03)
== END 2017-01-26 12:22 | DRG 125 ==
LOC: N.ED 13:18 → N.EDINP 16:15 → N.2E 17:04
PROVIDERS: ADMIT Family Medicine; ATTEND Family Medicine